=== PATIENT | female | born 1975 | race Caucasian/White ===

== ENCOUNTER 2017-11-04 11:27 | Emergency (ER) | payer OTHER ==
--- NOTE | 2017-11-04 12:27 | ER Document Report ---
ED Neck/Back Problem - General Chief Complaint: Neck Problem Stated Complaint: NECK AND SHOULDER PAIN Time Seen by Provider: 11/04/17 12:19 Mode of Arrival: Ambulatory Information source: Patient Notes: 42-year-old female presents to ED for complaint of pain to the left neck and shoulders for the last week. States she woke up in severe pain one day last week she states x-rays were done today. 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 She is also states she is also been lifting some at home. She is alert and oriented, respirations regular and unlabored, speaks with full sentences, walks with a even steady gait. - HPI Patient complains to provider of: Pain, Neck - And shoulders, Upper back Onset: Last week Onset: Cannot confirm Timing: Still present Quality of pain: Cramping, Sharp Severity: Severe Pain Level: 5 Context: Other - Unsure Recent injury: No Associated symptoms: Other - Neck upper back and shoulder pain Exacerbated by: Movement of neck - Related Data Allergies/Adverse Reactions: Sulfa (Sulfonamide Antibiotics) Allergy (Verified 11/04/17 11:30) Past Medical History - General Information source: Patient - Social History Smoking Status: Never Smoker Chew tobacco use (# tins/day): No Frequency of alcohol use: None Drug Abuse: None 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 Lives with: Family Family History: Reviewed & Not Pertinent Patient has suicidal ideation: No Patient has homicidal ideation: No - Past Medical History Cardiac Medical History: Reports: None Pulmonary Medical History: Reports: None EENT Medical History: Reports: None Neurological Medical History: Reports: None Endocrine Medical History: Reports: None Renal/ Medical History: Reports: Hx Kidney Stones Malignancy Medical History: Reports: None GI Medical History: Reports: None Musculoskeltal Medical History: Reports None Skin Medical History: Reports None Psychiatric Medical History: Reports: Hx Anxiety Traumatic Medical History: Reports: None Infectious Medical History: Reports: None Past Surgical History: Reports: Hx Section - x2, Hx Oral Surgery - Jaw surgery - Immunizations Immunizations up to date: Yes Review of Systems - Review of Systems Constitutional: No symptoms reported EENT: No symptoms reported Cardiovascular: No symptoms reported Respiratory: No symptoms reported Gastrointestinal: No symptoms reported Genitourinary: No symptoms reported Female Genitourinary: No symptoms reported Musculoskeletal: Muscle pain, Muscle stiffness, Neck pain - Spasms to the neck and left shoulder Skin: No symptoms reported Hematologic/Lymphatic: No symptoms reported Neurological/Psychological: No symptoms reported -: Yes All other systems reviewed and negative Physical Exam - Vital signs Vitals: Temp Pulse Resp BP Pulse Ox 98.8 F 102 H 20 165/98 H 96 11/04/17 11:41 11/04/17 11:41 11/04/17 11:41 11/04/17 11:41 11/04/17 11:41 Interpretation: Normal - General General appearance: Appears well, Alert - HEENT Head: Normocephalic, Atraumatic Eyes: Normal Pupils: PERRL - Respiratory Respiratory status: No respiratory distress Chest status: Nontender Breath sounds: Normal Chest palpation: Normal - Cardiovascular Rhythm: Regular Heart sounds: Normal auscultation Murmur: No - Abdominal Inspection: Normal Distension: No distension Bowel sounds: Normal Tenderness: Nontender Organomegaly: No organomegaly - Back Back: Normal, Tender - Tenderness and spasms to the left neck and shoulder increased pain when turning her head to the right - Extremities General upper extremity: Normal inspection, Normal color, Normal ROM, Normal temperature General lower extremity: Normal inspection, Nontender, Normal color, Normal ROM , Normal temperature, Normal weight bearing. No: Arslan's sign Shoulder: Tender, Limited ROM - Due to pain - Neurological Neuro grossly intact: Yes Cognition: Normal Orientation: AAOx4 [place] Coma Scale Eye Opening: Spontaneous [place] Coma Scale Verbal: Oriented Vik Coma Scale Motor: Obeys Commands [place] Coma Scale Total: 15 Speech: Normal Motor strength normal: LUE, RUE, LLE, RLE Sensory: Normal - Psychological Associated symptoms: Normal affect, Normal mood - Skin Skin Temperature: Warm Skin Moisture: Dry Skin Color: Normal Course - Re-evaluation Re-evalutation: 11/04/17 22:14 Patient was treated with nausea while in the emergency room. She was discharged home with muscle relaxers and encouraged to use ibuprofen warm packs and Aspercreme at home. Follow-up with orthopedics and her primary doctor. - Vital Signs Vital signs: Temp Pulse Resp BP Pulse Ox 98.5 F 102 H 19 139/85 H 99 11/04/17 12:30 11/04/17 12:30 11/04/17 12:30 11/04/17 12:30 11/04/17 12:30 Discharge - Discharge Clinical Impression: Torticollis, acute Condition: Stable Disposition: HOME, SELF-CARE Instructions: Use of Aead-Obk-Actzvus Ibuprofen ([facility]) Additional Instructions: Torticollis You have torticollis, often called "wry neck." This is due to spasm of neck muscles -- locking the neck into a crooked position. Many different problems can lead to torticollis, such as a minor injury, sleeping with tension on the neck, or inflammation in the glands of the neck. Torticollis is usually treated with heat to relax the neck muscles, but the physician may recommend cold packs if a minor injury is suspected as the cause. Muscle relaxing and antiinflammatory medicine are often prescribed. You may need a neck collar to support your head. Improvement is usually rapid. Usually, the neck can be moved fully within two days, although some pain may persist for a few weeks. Call the doctor at once if you worsen, or if you develop high fever, severe headache, numbness or weakness, or other alarming symptoms. ORAL NARCOTIC MEDICATION: You have been given a prescription for pain control. This medication is a narcotic. It's best taken with food, as nausea can result if taken on an empty stomach. Don't operate machinery or drive within six hours of taking this medication. Do not combine this medicine with alcohol, or with any medication which can cause sedation (such as cold tablets or sleeping pills) unless you get permission from the physician. Narcotics tend to cause constipation. If possible, drink plenty of fluids and eat a diet high in fiber and fruits. Please be aware that prescription narcotics also have the potential for abuse. People become addicted to these medications because of the general sense of wellbeing that they induce. This feeling along with a significant reduction in tension, anxiety, and aggression provides a stimulating seductive quality to these drugs. Once your pain is under control, we encourage you to discard your unused narcotics. MUSCLE RELAXERS: Muscle relaxing medications are usually prescribed for acute muscle spasm or injury to the neck and back. They are often combined with antiinflammatory pain medication for increased relief. You may stop the muscle relaxer when the pain and stiffness have improved. Start the medication again if spasms recur. Muscle relaxers may cause drowsiness, especially with the first dose. Do not operate machinery or drive while under the effects of the medication. Most muscle relaxers last up to 24 hours. Do not combine the medication with alcohol. ICE PACKS: Apply ice packs frequently against the painful area. Many different schedules are recommended, such as "20 minutes on, 20 minutes off" or "one hour ice, two hours rest." If you need to work, you may need to go longer between ice treatments. You should plan to have the area ice packed AT LEAST one fourth of the time. The ice should be applied over the wrap, tape, or splint, or over a layer of cloth -- not directly against the skin. Some ice bags have a built-in cloth and can be put directly on the skin. WARM PACKS: After approximately two days, apply gentle heat (such as a heating pad or hot water bottle) for about 20 to 30 minutes about every two hours -- at least four times daily. Warmth and elevation will help you make a more rapid recovery , and will ease the pain considerably. Do not use HOT heat, and never apply heat for longer than 30 minutes. The continuous heat can invisibly damage skin and muscles -- even when no burn is seen on the surface. Damaged muscles can make you MORE sore. FOLLOW-UP CARE: If you have been referred to a physician for follow-up care, call the physician s office for an appointment as you were instructed or within the next two days. If you experience worsening or a significant change in your symptoms, notify the physician immediately or return to the Emergency Department at any time for re-evaluation. Prescriptions: Oxycodone HCl/Acetaminophen [Percocet 5-325 mg Tablet] 1 tab PO Q6HP PRN #2 tab PRN Reason: Methocarbamol [Robaxin 500 mg Tablet] 500 mg PO BIDP PRN #14 tablet PRN Reason: Forms: Elevated Blood Pressure Referrals: LOCAL,NO [NO LOCAL MD] - Follow up as needed DEBRA HERRERA MD [ACTIVE STAFF] - Follow up in 3-5 days PARKER LEON MD [Primary Care Provider] - Follow up in 3-5 days
[2017-11-04 12:31] VITALS: BP 139/85
[2017-11-04] MEDS ORDERED: ONDANSETRON 4 MG TAB.RAPDIS PO ONE (12:36)
== END 2017-11-04 12:40 | disposition home or self-care (01) ==
LOC: ER 11:27
DX: M43.6 Torticollis (principal); M54.2 Cervicalgia; M25.511 Pain in right shoulder; M25.512 Pain in left shoulder; X50.9XXA Other and unspecified overexertion or strenuous movements or postures, initial encounter
CPT/HCPCS: 99283; S0119

== ENCOUNTER 2018-03-12 10:22 | Emergency (ER) | payer OTHER ==
--- NOTE | 2018-03-12 10:45 | ER Document Report ---
ED Medical Screen (RME) - General Chief Complaint: Abdominal Pain Stated Complaint: UPPER ABDOMINAL PAIN Time Seen by Provider: 03/12/18 10:35 Notes: 42-year-old female patient reports there has been a stomach virus going around her house since Wednesday. She was seen by her doctor on and received prescriptions for Tylenol 3, Toradol, and Zofran. She reports she had fever and chills through the night with 3 episodes of diarrhea. She reports she woke up at 530 this morning with right upper quadrant abdominal pain similar to gallbladder problems she had 10 years ago during . She states the pain is worse with food. The patient is seen at [facility] by JOSE Gallegos. I have greeted and performed a rapid initial assessment of this patient. A comprehensive ED assessment and evaluation of the patient, analysis of test results and completion of the medical decision making process will be conducted by additional ED providers. TRAVEL OUTSIDE OF THE [place] IN LAST 30 DAYS: No - Related Data Allergies/Adverse Reactions: Sulfa (Sulfonamide Antibiotics) Allergy (Verified 03/12/18 10:23) Past Medical History Renal/ Medical History: Reports: Hx Kidney Stones. Denies: Hx Peritoneal Dialysis Psychiatric Medical History: Reports: Hx Anxiety Past Surgical History: Reports: Hx Section - x2, Hx Oral Surgery - Jaw surgery - Immunizations Immunizations up to date: Yes Physical Exam - Vital signs Vitals: Temp Pulse Resp BP Pulse Ox 98.6 F 114 H 18 129/92 H 99 03/12/18 10:26 03/12/18 10:26 03/12/18 10:26 03/12/18 10:26 03/12/18 10:26 Course - Vital Signs Vital signs: Temp Pulse Resp BP Pulse Ox 98.6 F 114 H 18 129/92 H 99 03/12/18 10:26 03/12/18 10:26 03/12/18 10:26 03/12/18 10:26 03/12/18 10:26 Doctor's Discharge - Discharge Referrals: PARKER LEON MD [Primary Care Provider] - Follow up as needed
[2018-03-12] MEDS ORDERED: NORMAL SALINE 1000 ML 1,000 ML IV ONE (10:56)
--- NOTE | 2018-03-12 11:29 | RADIOLOGY REPORT (SQ) ---
EXAM DESCRIPTION: U/S ABDOMEN LIMITED W/O DOP COMPLETED DATE/TIME: 03/12/2018 11:06 am REASON FOR STUDY: RUQ abd pain COMPARISON: None. TECHNIQUE: Dynamic and static grayscale images acquired of the abdomen and recorded on PACS. Additio nal selected color Doppler and spectral images recorded. LIMITATIONS: None. FINDINGS: PANCREAS: No masses. Visualized pancreatic duct normal caliber. LIVER: No gross mass. Normal size. Echogenic parenchyma suggests steatosis. LIVER VASCULATURE: Normal directional flow of the main portal vein and hepatic veins. GALLBLADDER: No well-defined stones. Probable sludge within. ULTRASOUND-DETECTED GREER'S SIGN: Negative. INTRAHEPATIC DUCTS AND COMMON DUCT: CBD and intrahepatic ducts normal caliber. No filling defects. INFERIOR VENA CAVA: Normal flow. AORTA: No aneurysm. RIGHT KIDNEY: Normal size. Normal echogenicity. No solid or suspicious masses. No hydronephrosis. No calcifications. PERITONEAL AND RIGHT PLEURAL SPACE: No ascites or effusions. OTHER: No other significant findings. IMPRESSION: 1. No acute gallbladder disease. 2. Fatty liver. TECHNICAL DOCUMENTATION: JOB ID: [id number]- All Rights Reserved Reading location - IP/workstation name: [email or web address]
[2018-03-12] MEDS ORDERED: ONDANSETRON HCL INJ/PF 4 MG/2 ML SDV IV ONE (11:39)
[2018-03-12] MEDS ORDERED: MORPHINE SULFATE 10 MG/ML INJ IV ONE (11:39)
[2018-03-12 11:41] LABS: ABSOLUTE EOSINOPHILS # (AUTO) 0.5 10^3/uL (0.0-0.6); ABSOLUTE LYMPHOCYTES (AUTO) 2.6 10^3/uL (0.5-4.7); ABSOLUTE MONOCYTES (AUTO) 0.7 10^3/uL (0.1-1.4); ABSOLUTE NEUT (AUTO) 4.6 10^3/uL (1.7-8.2); BASOPHILS % (AUTO) 0.3 % (0-2); EOSINOPHILS % (AUTO) 6.1 % (0-6); HEMATOCRIT 35.9 % (36.0-47.0); HEMOGLOBIN 11.9 g/dL (12.0-15.5); LYMPHOCYTES % (AUTO) 30.4 % (13-45); MEAN CORPUSCULAR HEMOGLOBIN 26.7 pg (27.0-33.4); MEAN CORPUSCULAR HGB CONC 33.2 g/dL (32.0-36.0); MEAN CORPUSCULAR VOLUME 81 fl (80-97); MONOCYTES % (AUTO) 8.2 % (3-13); PLATELET COUNT 420 10^3/uL (150-450); RED BLOOD COUNT 4.46 10^6/uL (3.72-5.28); RED CELL DISTRIBUTION WIDTH 14.6 % (11.5-14.0); TOTAL CELLS COUNTED % (AUTO) 100 %; WHITE BLOOD COUNT 8.4 10^3/uL (4.0-10.5)
--- NOTE | 2018-03-12 11:42 | ER Document Report ---
ED General - General Chief Complaint: Abdominal Pain Stated Complaint: UPPER ABDOMINAL PAIN Time Seen by Provider: 03/12/18 10:35 TRAVEL OUTSIDE OF THE [place] IN LAST 30 DAYS: No - HPI Notes: Patient is a 42-year-old female that presents to the emergency department for chief complaint of abdominal pain. Patient states that 5 AM this morning she had acute onset of epigastric and right upper quadrant abdominal pain. The pain is sharp and nonradiating. She states it is worse about 15-30 minutes after eating any food or drinking any water. She denies any vomiting but does feel nauseated. The pain waxes and wanes but never completely resolves. She denies any relieving factors. She denies any constipation, diarrhea, fevers, shortness of breath, chest pain, numbness and weakness. She has had similar symptoms in the past during a but states it went away after fasting for 24 hours. Past Medical History: Negative Past Surgical History: Social History: Denies drugs alcohol and tobacco Family History: Reviewed and noncontributory for presenting illness Allergies: Reviewed, see documented allergy list. REVIEW OF SYSTEMS: CONSTITUTIONAL : No fever No chills No diaphoresis No recent illness EENT: No vision changes No congestion No sore throat CARDIOVASCULAR: No chest pain No palpitations RESPIRATORY: No shortness of breath No cough No difficulty breathing GASTROINTESTINAL: abdominal pain nausea No vomiting No diarrhea GENITOURINARY: No dysuria No hematuria No difficulty urinating MUSCULOSKELETAL: No back pain No leg pain No arm pain SKIN: No rashes No lesions LYMPHATIC: No swollen, enlarged glands. NEUROLOGICAL: No lightheadedness No headache No weakness No paresthesias PSYCHIATRIC: No anxiety No depression PHYSICAL EXAMINATION: Vital signs reviewed, nursing noted reviewed. GENERAL: Well-appearing, well-nourished and in no acute distress. HEAD: Atraumatic, normocephalic. EYES: Eyes appear normal, extraocular movements intact, sclera anicteric, conjunctiva are normal. ENT: nares patent, oropharynx clear without exudates. Moist mucous membranes. NECK: Normal range of motion, supple without lymphadenopathy LUNGS: Breath sounds clear to auscultation bilaterally and equal. No wheezes rales or rhonchi. HEART: Regular rate and rhythm without murmurs ABDOMEN: Soft, epigastric and right upper quadrant tenderness, negative Cool sign, normoactive bowel sounds. No rebound, guarding, or rigidity. No masses appreciated. EXTREMITIES: Nontender, good range of motion, no pitting or edema. NEUROLOGICAL: No focal neurological deficits. Moves all extremities spontaneously Motor and sensory grossly intact on exam. PSYCH: Normal mood, normal affect. SKIN: Warm, Dry, normal turgor, no rashes or lesions noted on exposed skin - Related Data Allergies/Adverse Reactions: Sulfa (Sulfonamide Antibiotics) Allergy (Verified 03/12/18 10:23) Past Medical History - Social History Smoking Status: Unknown if Ever Smoked Family History: Reviewed & Not Pertinent Patient has suicidal ideation: No Patient has homicidal ideation: No Renal/ Medical History: Reports: Hx Kidney Stones. Denies: Hx Peritoneal Dialysis Psychiatric Medical History: Reports: Hx Anxiety Past Surgical History: Reports: Hx Section - x2, Hx Oral Surgery - Jaw surgery - Immunizations Immunizations up to date: Yes Review of Systems - Review of Systems Notes: Dictated Physical Exam - Vital signs Vitals: Temp Pulse Resp BP Pulse Ox 98.6 F 114 H 18 129/92 H 99 03/12/18 10:26 03/12/18 10:26 03/12/18 10:26 03/12/18 10:26 03/12/18 10:26 - Notes Notes: Dictated Course - Re-evaluation Re-evalutation: 03/12/18 11:41 Vitals reviewed. Nursing notes reviewed. Patient given IV hydration, morphine and Zofran for symptomatic management. Ultrasound of her right upper quadrant is normal and there is no acute cholecystitis. 03/12/18 12:42 Laboratory 03/12/18 03/12/18 03/12/18 10:45 11:10 11:10 WBC 8.4 RBC 4.46 Hgb 11.9 L Hct 35.9 L MCV 81 MCH 26.7 L MCHC 33.2 RDW 14.6 H Plt Count 420 Seg Neutrophils % 55.0 Lymphocytes % 30.4 Monocytes % 8.2 Eosinophils % 6.1 H Basophils % 0.3 Absolute Neutrophils 4.6 Absolute Lymphocytes 2.6 Absolute Monocytes 0.7 Absolute Eosinophils 0.5 Absolute Basophils 0.0 Sodium 143.2 Potassium 4.9 Chloride 107 Carbon Dioxide 25 Anion Gap 11 BUN 19 Creatinine 0.72 Est GFR ( Amer) > 60 Est GFR (Non-Af Amer) > 60 Glucose 90 Calcium 9.6 Total Bilirubin 0.2 Direct Bilirubin 0.2 Neonat Total Bilirubin Not Reportable Neonat Direct Bilirubin Not Reportable Neonat Indirect Bili Not Reportable AST 44 H ALT 83 H Alkaline Phosphatase 77 Total Protein 6.6 Albumin 3.9 Lipase 86.9 Serum HCG, Qual Urine Color YELLOW Urine Appearance CLEAR Urine pH 5.0 Ur Specific [place] 1.024 Urine Protein NEGATIVE Urine Glucose (UA) NEGATIVE Urine Ketones NEGATIVE Urine Blood NEGATIVE Urine Nitrite NEGATIVE Urine Bilirubin NEGATIVE Urine Urobilinogen NEGATIVE Ur Leukocyte Esterase NEGATIVE Urine WBC (Auto) 0 Urine RBC (Auto) 0 Squamous Epi Cells Auto <1 Urine Mucus (Auto) FEW Urine Ascorbic Acid NEGATIVE 03/12/18 11:10 WBC RBC Hgb Hct MCV MCH MCHC RDW Plt Count Seg Neutrophils % Lymphocytes % Monocytes % Eosinophils % Basophils % Absolute Neutrophils Absolute Lymphocytes Absolute Monocytes Absolute Eosinophils Absolute Basophils Sodium Potassium Chloride Carbon Dioxide Anion Gap BUN Creatinine Est GFR ( Amer) Est GFR (Non-Af Amer) Glucose Calcium Total Bilirubin Direct Bilirubin Neonat Total Bilirubin Neonat Direct Bilirubin Neonat Indirect Bili AST ALT Alkaline Phosphatase Total Protein Albumin Lipase Serum HCG, Qual NEGATIVE Urine Color Urine Appearance Urine pH Ur Specific [place] Urine Protein Urine Glucose (UA) Urine Ketones Urine Blood Urine Nitrite Urine Bilirubin Urine Urobilinogen Ur Leukocyte Esterase Urine WBC (Auto) Urine RBC (Auto) Squamous Epi Cells Auto Urine Mucus (Auto) Urine Ascorbic Acid Abdomen Ultrasound 03/12/18 10:42 IMPRESSION: 1. No acute gallbladder disease. 2. Fatty liver. Patient's lab work is unremarkable. She did have some symptomatic relief after medication. She has remained hemodynamically stable. Patient will be started on omeprazole for possible gastritis. She was counseled on dietary changes. She will follow with her PCP for reevaluation in the next few days. She will return for new or worsening symptoms. - Vital Signs Vital signs: Temp Pulse Resp BP Pulse Ox 98.6 F 114 H 18 129/92 H 99 03/12/18 10:26 03/12/18 10:26 03/12/18 10:26 03/12/18 10:26 03/12/18 10:26 - Laboratory Result Diagrams: 03/12/18 11:10 03/12/18 11:10 Laboratory results interpreted by me: 03/12/18 03/12/18 11:10 11:10 Hgb 11.9 L Hct 35.9 L MCH 26.7 L RDW 14.6 H Eosinophils % 6.1 H AST 44 H ALT 83 H Discharge - Discharge Clinical Impression: Abdominal pain Qualifiers: Abdominal location: upper abdomen, unspecified Qualified Code(s): R10.10 - Upper abdominal pain, unspecified Condition: Stable Disposition: HOME, SELF-CARE Instructions: Abdominal Pain ([facility]) Additional Instructions: Please return to the emergency department if you have any worsening, or concern of your symptoms. Please return to the emergency department if you develop chest pain, difficulty breathing, severe abdominal pain, or ongoing vomiting. Please follow-up with your primary care physician in 2-3 days and any other recommended physicians. If prescribed, take all medications as directed. If you have any questions or concerns do not hesitate to return the emergency department for evaluation. [] Prescriptions: Omeprazole 40 mg PO DAILY #30 capsule.dr Referrals: PARKER LEON MD [ACTIVE STAFF] - Follow up in 3-5 days
[2018-03-12 11:54] LABS: ALANINE AMINOTRANSFERASE 83 U/L (9-52); ALBUMIN 3.9 g/dL (3.5-5.0); ALKALINE PHOSPHATASE 77 U/L (38-126); ANION GAP 11 (5-19); ASPARTATE AMINO TRANSFERASE 44 U/L (14-36); BILIRUBIN,DIRECT 0.2 mg/dL (0.0-0.4); BILIRUBIN,TOTAL 0.2 mg/dL (0.2-1.3); BLOOD UREA NITROGEN 19 mg/dL (7-20); CALCIUM 9.6 mg/dL (8.4-10.2); CARBON DIOXIDE 25 mmol/L (22-30); CHLORIDE 107 mmol/L (98-107); GLUCOSE 90 mg/dL (75-110); LIPASE 86.9 U/L (23-300); POTASSIUM 4.9 mmol/L (3.6-5.0); SODIUM 143.2 mmol/L (137-145); TOTAL PROTEIN 6.6 g/dL (6.3-8.2)
[2018-03-12 12:20] LABS: APPEARANCE,URINE CLEAR; BILIRUBIN,URINE NEGATIVE (NEGATIVE); COLOR,URINE YELLOW; GLUCOSE, URINE NEGATIVE (NEGATIVE); KETONES,URINE NEGATIVE (NEGATIVE); LEUKOCYTE ESTERASE,URINE NEGATIVE (NEGATIVE); NITRITE,URINE NEGATIVE (NEGATIVE); PROTEIN,URINE NEGATIVE (NEGATIVE); URINE SPECIFIC GRAVITY 1.024; UROBILINOGEN,URINE NEGATIVE mg/dL (<2.0)
[2018-03-12 12:57] VITALS: BP 131/87
== END 2018-03-12 12:56 | disposition home or self-care (01) ==
LOC: ER 10:22
DX: R10.13 Epigastric pain (principal); R10.11 Right upper quadrant pain; Z87.442 Personal history of urinary calculi; Z88.2 Allergy status to sulfonamides
CPT/HCPCS: 99284; 96361; 96374; 96375; 36415; 83690; 84703; 85025; 80053; 81001; 76705; J2270; J2405; J7030

== ENCOUNTER 2019-07-03 04:36 | Emergency (ER) | payer BC, OTHER ==
[2019-07-03] MEDS ORDERED: TAMSULOSIN HCL 0.4 MG CAP.SR.24H PO ONE (05:06)
[2019-07-03] MEDS ORDERED: KETOROLAC TROMETHAMINE INJ/PF 30 MG/1 ML SDV IV ONE (05:06)
[2019-07-03] MEDS ORDERED: NORMAL SALINE 1000 ML 1,000 ML IV ONE (05:06)
--- NOTE | 2019-07-03 05:13 | ER Document Report ---
ED General - General Chief Complaint: Possible Kidney Stone Stated Complaint: FLANK PAIN Time Seen by Provider: 07/03/19 04:54 Primary Care Provider: FRAN CRAIG PA-C [Primary Care Provider] - Follow up as needed Mode of Arrival: Ambulatory Information source: Patient Notes: 44-year-old female presents emergency department with complaints of left-sided flank pain. Reports she has a history of kidney stones. She reports this pain woke her up tonight. She reports she has noted hematuria. She reports last couple days she has had urinary frequency with decreased output. Denies fever vomiting diarrhea. Reports she did feel nauseated so she took some Zofran on the way here. Patient reports she had a kidney stone back in January and was supposed to follow-up for lithotripsy but never did. TRAVEL OUTSIDE OF THE [place] IN LAST 30 DAYS: No - HPI Onset: Just prior to arrival Onset/Duration: Sudden Quality of pain: Achy Associated symptoms: Nausea Exacerbated by: Denies Relieved by: Denies Similar symptoms previously: Yes Recently seen / treated by doctor: No - Related Data Allergies/Adverse Reactions: Sulfa (Sulfonamide Antibiotics) Allergy (Verified 03/12/18 10:23) Home Medications: flomax, aleve,zofran Past Medical History - General Information source: Patient Last Menstrual Period: June 15, 2019 - Social History Smoking Status: Never Smoker Cigarette use (# per day): No Frequency of alcohol use: None Drug Abuse: None Occupation: [employer] Lives with: Family Family History: Reviewed & Not Pertinent Patient has suicidal ideation: No Patient has homicidal ideation: No Renal/ Medical History: Reports: Hx Kidney Stones. Denies: Hx Peritoneal Dialysis Psychiatric Medical History: Reports: Hx Anxiety Traumatic Medical History: Reports: Hx Fractures Past Surgical History: Reports: Hx Section - x2, Hx Oral Surgery - Jaw surgery, Hx Orthopedic Surgery - Immunizations Immunizations up to date: Yes Review of Systems - Review of Systems Notes: Review HPI for review of systems., All other systems negative Physical Exam - Vital signs Vitals: Temp Pulse Resp BP Pulse Ox 98.2 F 117 H 18 139/90 H 99 07/03/19 04:42 07/03/19 04:42 07/03/19 04:42 07/03/19 04:42 07/03/19 04:42 - General General appearance: Alert, Anxious In distress: None - HEENT Head: Normocephalic, Atraumatic Eyes: Normal Conjunctiva: Normal Extraocular movements intact: Yes Ears: Normal External canal: Normal Tympanic membrane: Normal Nasal: Normal Mucous membranes: Moist Teeth diagram: 1 - Widespread dental decay Pharynx: Normal Neck: Normal, Supple. No: Lymphadenopathy - Respiratory Respiratory status: No respiratory distress Chest status: Nontender Breath sounds: Normal Chest palpation: Normal - Cardiovascular Rhythm: Regular Heart sounds: Normal auscultation Murmur: No - Abdominal Inspection: Normal Distension: No distension Bowel sounds: Normal Tenderness: Nontender Organomegaly: No organomegaly - Back Back: Normal, CVA tenderness - Flank pain Course - Re-evaluation Re-evalutation: 07/03/19 06:59 44-year-old female presents emergency department with complaints of left-sided flank pain with history of kidney stones. Reports the pain woke her up. Patient has been treated with IV fluids, fentanyl for pain and Reglan for her nausea. Labs are unremarkable. 07/03/19 07:22 Laboratory 07/03/19 07/03/19 07/03/19 05:40 05:51 05:51 WBC 9.6 RBC 4.09 Hgb 11.2 L Hct 33.7 L MCV 83 MCH 27.5 MCHC 33.4 RDW 14.3 H Plt Count 329 Lymph % (Auto) 21.3 Jerome % (Auto) 7.4 Eos % (Auto) 3.5 Baso % (Auto) 0.3 Absolute Neuts (auto) 6.5 Absolute Lymphs (auto) 2.0 Absolute Monos (auto) 0.7 Absolute Eos (auto) 0.3 Absolute Basos (auto) 0.0 Seg Neutrophils % 67.5 Sodium 141.0 Potassium 4.3 Chloride 107 Carbon Dioxide 25 Anion Gap 9 BUN 18 Creatinine 1.14 Est GFR ( Amer) > 60 Est GFR (MDRD) Non-Af 52 L Glucose 109 Calcium 9.1 Total Bilirubin 0.3 Direct Bilirubin 0.3 Neonat Total Bilirubin Not Reportable Neonat Direct Bilirubin Not Reportable Neonat Indirect Bili Not Reportable AST 24 ALT 14 Alkaline Phosphatase 79 Total Protein 6.6 Albumin 3.7 Urine Color YELLOW Urine Appearance CLEAR Urine pH 5.0 Ur Specific [place] 1.028 Urine Protein 30 H Urine Glucose (UA) NEGATIVE Urine Ketones NEGATIVE Urine Blood NEGATIVE Urine Nitrite NEGATIVE Urine Bilirubin NEGATIVE Urine Urobilinogen NEGATIVE Ur Leukocyte Esterase NEGATIVE Urine WBC (Auto) 2 Urine RBC (Auto) 35 Squamous Epi Cells Auto <1 Urine Mucus (Auto) FEW Urine Ascorbic Acid 40 H Urine HCG, Qual NEGATIVE Abdomen/Pelvis CT 07/03/19 06:04 IMPRESSION: 5 mm stone within the distal left ureter causing moderate hydroureter and hydronephrosis. Edematous left kidney. Pyelonephritis may be present. Nonobstructing right-sided nephrolithiasis. Porcelain gallbladder. Right ovarian cyst. Recommend follow-up ultrasound in 6-12 weeks. TECHNICAL DOCUMENTATION: Quality ID # 436: Final reports with documentation of one or more dose reduction techniques (e.g., Automated exposure control, adjustment of the mA and/or kV according to patient size, use of iterative reconstruction technique) copyright 2011 [employer]- All Rights Reserved - Vital Signs Vital signs: Temp Pulse Resp BP Pulse Ox 97.8 F 102 H 18 123/74 98 07/03/19 07:05 07/03/19 07:05 07/03/19 07:05 07/03/19 07:05 07/03/19 07:05 - Laboratory Result Diagrams: 07/03/19 05:51 07/03/19 05:51 Laboratory results interpreted by me: 07/03/19 07/03/19 07/03/19 05:40 05:51 05:51 Hgb 11.2 L Hct 33.7 L RDW 14.3 H Est GFR (MDRD) Non-Af 52 L Urine Protein 30 H Urine Ascorbic Acid 40 H - Diagnostic Test Radiology reviewed: Reports reviewed Discharge - Discharge Clinical Impression: Flank pain, Kidney stone, Porcelain gallbladder Ovarian cyst Qualifiers: Laterality: right Qualified Code(s): N83.201 - Unspecified ovarian cyst, right side Condition: Stable Disposition: HOME, SELF-CARE Instructions: Oral Narcotic Medication ([facility]), Toradol Injection ([facility]), Pain Medication Injection ([facility]), Kidney Stone ([facility]), Rocephin ([facility]), Intravenous (IV) Fluids ([facility]), Nitrofurantoin ([facility]) Additional Instructions: *You have been evaluated for flank pain, kidney stone, porcelain gallbladder , ovarian cyst *Take medication as prescribed *Follow up with Fran Craig, your primary care provider, this week for recheck and referral to a surgeon for evaluation of the porcelain gallbladder *Contact your urologist, Dr. 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
[2019-07-03 05:58] LABS: APPEARANCE,URINE CLEAR; BILIRUBIN,URINE NEGATIVE (NEGATIVE); COLOR,URINE YELLOW; GLUCOSE, URINE NEGATIVE (NEGATIVE); KETONES,URINE NEGATIVE (NEGATIVE); LEUKOCYTE ESTERASE,URINE NEGATIVE (NEGATIVE); NITRITE,URINE NEGATIVE (NEGATIVE); PROTEIN,URINE 30 mg/dL (NEGATIVE); URINE SPECIFIC GRAVITY 1.028; UROBILINOGEN,URINE NEGATIVE mg/dL (<2.0)
[2019-07-03 06:04] LABS: ABSOLUTE EOSINOPHILS # (AUTO) 0.3 10^3/uL (0.0-0.6); ABSOLUTE MONOCYTES (AUTO) 0.7 10^3/uL (0.1-1.4); ABSOLUTE NEUT (AUTO) 6.5 10^3/uL (1.7-8.2); BASOPHILS % (AUTO) 0.3 % (0-2); EOSINOPHILS % (AUTO) 3.5 % (0-6); HEMATOCRIT 33.7 % (36.0-47.0); HEMOGLOBIN 11.2 g/dL (12.0-15.5); LYMPHOCYTES % (AUTO) 21.3 % (13-45); MEAN CORPUSCULAR HEMOGLOBIN 27.5 pg (27.0-33.4); MEAN CORPUSCULAR HGB CONC 33.4 g/dL (32.0-36.0); MEAN CORPUSCULAR VOLUME 83 fl (80-97); MONOCYTES % (AUTO) 7.4 % (3-13); PLATELET COUNT 329 10^3/uL (150-450); RED BLOOD COUNT 4.09 10^6/uL (3.72-5.28); RED CELL DISTRIBUTION WIDTH 14.3 % (11.5-14.0); SEGMENTED NEUTROPHILS % (AUTO) 67.5 % (42-78); TOTAL CELLS COUNTED % (AUTO) 100 %; WHITE BLOOD COUNT 9.6 10^3/uL (4.0-10.5)
[2019-07-03] MEDS ORDERED: FENTANYL CITRATE INJ/PF 100 MCG/2 ML AMPUL IV ONE ×3 (06:04→08:30)
[2019-07-03] MEDS ORDERED: METOCLOPRAMIDE HCL INJ/PF 10 MG/2 ML SDV IV ONE (06:04)
[2019-07-03 06:21] LABS: ALBUMIN 3.7 g/dL (3.5-5.0); ALKALINE PHOSPHATASE 79 U/L (38-126); ANION GAP 9 (5-19); ASPARTATE AMINO TRANSFERASE 24 U/L (14-36); BILIRUBIN,DIRECT 0.3 mg/dL (0.0-0.4); BILIRUBIN,TOTAL 0.3 mg/dL (0.2-1.3); BLOOD UREA NITROGEN 18 mg/dL (7-20); CALCIUM 9.1 mg/dL (8.4-10.2); CARBON DIOXIDE 25 mmol/L (22-30); CHLORIDE 107 mmol/L (98-107); GLUCOSE 109 mg/dL (75-110); POTASSIUM 4.3 mmol/L (3.6-5.0); TOTAL PROTEIN 6.6 g/dL (6.3-8.2)
--- NOTE | 2019-07-03 07:02 | RADIOLOGY REPORT (SQ) ---
EXAM DESCRIPTION: CT ABDOMEN PELVIS WITHOUT IV CONTRAST COMPLETED DATE/TME: 07/03/2019 06:04 CLINICAL HISTORY: 44 years, Female, flank pain hx kidney stones COMPARISON: None. TECHNIQUE: Axial CT images of the abdomen and pelvis were obtained without contrast. Sagittal and coronal reformats were performed. Sagittal and coronal reformats were performed. DLP 492 Images stored on PACS. All CT scanners at this facility use dose modulation, iterative reconstruction, and/or weight based dosing when appropriate to reduce radiation dose to as low as reasonably achievable (ALARA). [facility]: Dose Right [facility]: CareDose [facility]: Dose Right [facility]: Teradose 4D [facility]: [employer] LIMITATIONS: None. FINDINGS: The lung bases are clear. The liver appears unremarkable. There are calcifications along the gallbladder wall. No calcified stone or pericholecystic fluid is identified. The pancreas, spleen, and adrenal glands are unremarkable. There are two nonobstructing stones within the right kidney with the largest stone along the lower pole measuring 7 mm. There is a 5 mm stone within the distal left ureter causing moderate hydroureter and hydronephrosis. The left kidney is edematous with perinephric stranding. There is an additional punctate stone along the upper pole the left kidney. There is no intraperitoneal free air or fluid. The abdominal aorta is normal in caliber. There is no lymphadenopathy. The stomach and small bowel are unremarkable. The appendix is not uniquely identified, however there are no pericecal inflammatory changes. The colon contains a moderate amount of stool. The uterus and urinary bladder are unremarkable. There is a 4.4 x 4.4 cm right ovarian cyst. The bones are unremarkable. IMPRESSION: 5 mm stone within the distal left ureter causing moderate hydroureter and hydronephrosis. Edematous left kidney. Pyelonephritis may be present. Nonobstructing right-sided nephrolithiasis. Porcelain gallbladder. Right ovarian cyst. Recommend follow-up ultrasound in 6-12 weeks. TECHNICAL DOCUMENTATION: Quality ID # 436: Final reports with documentation of one or more dose reduction techniques (e.g., Automated exposure control, adjustment of the mA and/or kV according to patient size, use of iterative reconstruction technique) copyright 2011 [employer]- All Rights Reserved
[2019-07-03] MEDS ORDERED: CEFTRIAXONE 1 GM/D5W RTU 1 GM/50 ML RTUPB IV ONE (07:19)
[2019-07-03 08:38] VITALS: BP 115/68
== END 2019-07-03 08:38 | disposition home or self-care (01) ==
LOC: ER 04:36
DX: N83.201 Unspecified ovarian cyst, right side (principal); N20.0 Calculus of kidney; K82.8 Other specified diseases of gallbladder; R10.9 Unspecified abdominal pain; R11.0 Nausea; Z88.2 Allergy status to sulfonamides; Z87.442 Personal history of urinary calculi
CPT/HCPCS: 96376; 99284; 96361; 96375; 96365; 36415; 87040; 87086; 85025; 81025; 80053; 81001; 74176; J3010; J1885; J2765; J7030; J0696

== ENCOUNTER 2020-04-19 05:57 | Emergency (ER) | payer BC ==
[2020-04-19 06:38] LABS: ABSOLUTE BASOPHILS # (AUTO) 0.1 10^3/uL (0.0-0.2); ABSOLUTE EOSINOPHILS # (AUTO) 0.6 10^3/uL (0.0-0.6); ABSOLUTE LYMPHOCYTES (AUTO) 3.3 10^3/uL (0.5-4.7); ABSOLUTE MONOCYTES (AUTO) 0.8 10^3/uL (0.1-1.4); BASOPHILS % (AUTO) 0.8 % (0-2); EOSINOPHILS % (AUTO) 5.5 % (0-6); HEMOGLOBIN 11.6 g/dL (12.0-15.5); LYMPHOCYTES % (AUTO) 30.7 % (13-45); MEAN CORPUSCULAR HEMOGLOBIN 26.6 pg (27.0-33.4); MEAN CORPUSCULAR HGB CONC 33.2 g/dL (32.0-36.0); MEAN CORPUSCULAR VOLUME 80 fl (80-97); MONOCYTES % (AUTO) 7.7 % (3-13); PLATELET COUNT 425 10^3/uL (150-450); RED BLOOD COUNT 4.35 10^6/uL (3.72-5.28); RED CELL DISTRIBUTION WIDTH 14.7 % (11.5-14.0); SEGMENTED NEUTROPHILS % (AUTO) 55.3 % (42-78); TOTAL CELLS COUNTED % (AUTO) 100 %; WHITE BLOOD COUNT 10.9 10^3/uL (4.0-10.5)
[2020-04-19 06:46] LABS: APPEARANCE,URINE SLIGHTLY-CLOUDY; BILIRUBIN,URINE NEGATIVE (NEGATIVE); COLOR,URINE YELLOW; GLUCOSE, URINE NEGATIVE (NEGATIVE); KETONES,URINE NEGATIVE (NEGATIVE); LEUKOCYTE ESTERASE,URINE TRACE (NEGATIVE); NITRITE,URINE NEGATIVE (NEGATIVE); PROTEIN,URINE 30 mg/dL (NEGATIVE); URINE SPECIFIC GRAVITY 1.023; UROBILINOGEN,URINE NEGATIVE mg/dL (<2.0)
[2020-04-19 06:53] LABS: ALBUMIN 3.6 g/dL (3.5-5.0); ALKALINE PHOSPHATASE 59 U/L (38-126); ASPARTATE AMINO TRANSFERASE 25 U/L (14-36); BILIRUBIN,DIRECT 0.2 mg/dL (0.0-0.4); BILIRUBIN,TOTAL 0.3 mg/dL (0.2-1.3); BLOOD UREA NITROGEN 17 mg/dL (7-20); CALCIUM 9.2 mg/dL (8.4-10.2); GLUCOSE 111 mg/dL (75-110); POTASSIUM 4.8 mmol/L (3.6-5.0); TOTAL PROTEIN 6.5 g/dL (6.3-8.2)
[2020-04-19 06:58] LABS: ANION GAP 5 (5-19); CARBON DIOXIDE 24 mmol/L (22-30); CHLORIDE 108 mmol/L (98-107)
[2020-04-19] MEDS ORDERED: ONDANSETRON HCL INJ/PF 4 MG/2 ML SDV IV ONE (08:02)
[2020-04-19] MEDS ORDERED: HYDROMORPHONE HCL INJ/PF 2 MG/ML AMPULE IV ONE ×2 (08:02→09:07)
[2020-04-19] MEDS ORDERED: NORMAL SALINE 1000 ML 1,000 ML IV ONE ×2 (08:02→09:07)
--- NOTE | 2020-04-19 08:09 | ER Document Report ---
ED General - General Chief Complaint: Possible Kidney Stone Stated Complaint: RIGHT FLANK PAIN Time Seen by Provider: 04/19/20 07:42 Primary Care Provider: DEL GUARDADO PA-C [Primary Care Provider] - Follow up as needed TRAVEL OUTSIDE OF THE [place] IN LAST 30 DAYS: No - HPI Notes: Chief complaint: Right flank pain, nausea and vomiting History of present illness: 44-year-old female with history of recurrent episodes of ureterolithiasis awakened this morning with severe right-sided flank pain which she says is worse than her prior episodes. She describes her pain presently is 8/10 and intermittent. Associated nausea and vomiting. No fever chills. No gross hematuria. Mild urinary urgency. Patient has been followed by the [facility] urology [facility] and says that the last time she had a scan was about 2 years ago. She is always passed her stone spontaneously. She has a history of experiencing increased intracranial pressure when she has been given morphine. She states that she is tolerating Tylenol without any difficulty. She is presently on any prescription medications. She reports allergy to sulfa drugs. - Related Data Allergies/Adverse Reactions: morphine Allergy (Verified 04/19/20 06:10) Sulfa (Sulfonamide Antibiotics) Allergy (Verified 03/12/18 10:23) Past Medical History - General Information source: Patient, Relative Last Menstrual Period: 04/11/2020 - Social History Smoking Status: Never Smoker Frequency of alcohol use: None Drug Abuse: None Family History: Reviewed & Not Pertinent Patient has homicidal ideation: No Neurological Medical History: Reports: Other - History of ICP Endocrine Medical History: Denies: Hx Diabetes Mellitus Type 1, Hx Diabetes Mellitus Type 2 Renal/ Medical History: Reports: Hx Kidney Stones. Denies: Hx Peritoneal Dialysis Psychiatric Medical History: Reports: Hx Anxiety Traumatic Medical History: Reports: Hx Fractures Past Surgical History: Reports: Hx Section - x2, Hx Oral Surgery - Jaw surgery, Hx Orthopedic Surgery - right foot - Immunizations Immunizations up to date: Yes Review of Systems - Review of Systems Notes: Constitutional: Negative for fever. HENT: Negative for sore throat. Eyes: Negative for visual changes. Cardiovascular: Negative for chest pain. Respiratory: Negative for shortness of breath. Gastrointestinal: As per HPI. Genitourinary: As per HPI. Musculoskeletal: As per HPI. Skin: Negative for rash. Neurological: Negative for headaches, weakness or numbness. 10 point ROS negative except as marked above and in HPI. Physical Exam - Vital signs Vitals: Temp Pulse Resp BP Pulse Ox 98.1 F 109 H 18 149/88 H 100 04/19/20 06:02 04/19/20 06:02 04/19/20 06:02 04/19/20 06:02 04/19/20 06:02 - Notes Notes: GENERAL: Middle-aged female holding right flank area appearing extremely uncomfortable and tearful. SKIN: Good turgor no rashes. HEAD: Normocephalic atraumatic. EYES: PERRLA. EOMI. Conjunctivae and sclerae clear. EARS: CANALS AND TMS CLEAR. NOSE: CLEAR. MOUTH: Moist mucosa. Good dentition. No stridor or edema. No drooling. NECK: Supple. No masses or thyromegaly. No adenopathy. Carotids 2+ without bruits. No JVD. BACK: Symmetrical without tenderness. CHEST: Respirations unlabored. Breath sounds clear and symmetrical. HEART: Regular rhythm. No murmur gallop or rub. ABDOMEN: Soft nontender without masses, organomegaly or rebound. Bowel sounds normally active. No bruits. GENITALIA: Deferred. EXTREMITIES: No edema. No calf tenderness. Cap refill less than 1.5 seconds. Dorsalis pedis and posterior tibial pulses 3+ and symmetrical. NEUROLOGICAL: GCS 15. Alert and oriented x3. Normal gait. Fluent speech. Cranial nerves II through XII intact. Sensorimotor and cerebellar normal. Normal tone. PSYCHIATRIC: Anxious, tearful affect. Course - Re-evaluation Re-evalutation: 04/19/20 09:08 Clinically patient appears to have right-sided renal colic. She initially received IV normal saline and IV Zofran and Dilaudid. Subsequent noncontrast CT abdomen pelvis shows 7 mm calculus distal right ureter with hydronephrosis. Serum creatinine is normal. Urinalysis remarkable for microscopic hematuria. Patient still has 7/10 intensity pain. We will give her some IV Toradol and additional Dilaudid normal saline. We will reassess patient clinically within the next 1 hour. Pain can be adequately controlled she will go home on oral analgesics with outpatient urology follow-up. If pain cannot be controlled we will try to arrange transfer to another facility for stenting. Findings, clinical impression and plan of treatment have been discussed with patient/family. Understanding of current findings and recommendations has been acknowledged by them and there is agreement regarding disposition and follow-up. 04/19/20 10:29 Pain is now adequately controlled and patient is taking oral fluids without difficulty. We will coordinate outpatient neurology follow-up. - Vital Signs Vital signs: Temp Pulse Resp BP Pulse Ox 98.1 F 109 H 18 149/88 H 100 04/19/20 06:02 04/19/20 06:02 04/19/20 06:02 04/19/20 06:02 04/19/20 06:02 - Laboratory Results Result Diagrams: 04/19/20 06:23 04/19/20 06:23 Laboratory Results Interpreted: 04/19/20 04/19/20 04/19/20 06:23 06:23 06:23 WBC 10.9 H Hgb 11.6 L Hct 35.0 L MCH 26.6 L RDW 14.7 H Chloride 108 H Glucose 111 H Urine Protein 30 H Urine Blood MODERATE H Ur Leukocyte Esterase TRACE H Critical Laboratory Results Reviewed: No Critical Results - Radiology Results Radiology Results Interpreted: 04/19/20 09:08 Abdomen/Pelvis CT 04/19/20 08:03 IMPRESSION: 1. 7 mm obstructing stone at the right distal ureter with significant associated upstream hydronephrosis and edematous renal parenchyma. 2. Peripheral gallbladder wall calcifications, similar to prior. No other evidence of acute intra-abdominal/pelvic process. Critical Radiology Results Reviewed: Yes Attending or Supervising Physician who Reviewed Radiology: CAREY CASTREJON Discharge - Discharge Clinical Impression: Ureterolithiasis with renal colic right Condition: Stable Disposition: HOME, SELF-CARE Additional Instructions: Kidney Stone You are passing or have passed a kidney stone. These stones are usually due to increased calcium or uric acid concentrations in your urine. Stones within the kidney itself are not painful. The pain occurs as the stone leaves the kidney to pass down the long tube, called the ureter, leading to the b ladder. If the stone is small, it will usually pass by itself. Most patients can pass the stone at home. You will usually receive medications for pain, nausea or vomiting, and sometimes a medication to assist in passing the kidney stone. However, if the pain is very severe or if vomiting prevents you from taking oral pain medications, you may need to return for further treatment. Drink three or four quarts of fluids per day. You will be given pain medication (if needed) and urine strainers. Strain all your urine to see if the stone passes. If your doctor has asked you to bring the stone in for analysis, return with the stone once it has passed. Return if pain or vomiting become severe, if you develop a high fever, if you are unable to pass your urine, or if other unusual symptoms occur. Return here as needed for new or worsening symptoms: Pain that is worsening or unimproved Uncontrolled vomiting High fever or shaking chills Overall worsening You have been provided a work note for the next 3 days. Increase oral fluids. Take prescribed medications as directed. Follow-up with your urologist or referral urologist within the next 3 to 5 days. Prescriptions: Ketorolac Tromethamine [Toradol 10 mg Tablet] 10 mg PO Q6HP PRN 10 Days #20 tablet PRN Reason: Tamsulosin HCl [Flomax 0.4 mg Cap.sr] 0.4 mg PO DAILY 7 Days #14 cap.sr.24h Oxycodone HCl/Acetaminophen [Percocet 5-325 mg Tablet] 1 tab PO Q6H PRN 5 Days #20 tab PRN Reason: Ondansetron [Zofran Odt 4 mg Tablet] 1 - 2 tab PO Q4H PRN #15 tab.rapdis PRN Reason: For Nausea/Vomiting Forms: Return to Work Referrals: DEL GUARDADO PA-C [Primary Care Provider] - Follow up as needed ROLA BERNSTEIN MD [NO LOCAL MD] - Follow up as needed
--- NOTE | 2020-04-19 08:54 | RADIOLOGY REPORT (SQ) ---
EXAM DESCRIPTION: CT ABD/PELVIS NO ORAL OR IV IMAGES COMPLETED DATE/TIME: 04/19/2020 8:28 am REASON FOR STUDY: right flank pain COMPARISON: 07/03/2019 TECHNIQUE: CT scan of the abdomen and pelvis performed without intravenous or oral contrast. Images reviewed with lung, soft tissue, and bone windows. Reconstructed coronal and sagittal MPR images revi ewed. All images stored on PACS. All CT scanners at this facility use dose modulation, iterative reconstruction, and/or weight based d osing when appropriate to reduce radiation dose to as low as reasonably achievable (ALARA). [facility]: Dose Right [facility]: CareDose [facility]: Dose Right [facility]: Teradose 4D [facility]: [employer] RADIATION DOSE: CT Rad equipment meets quality standard of care and radiation dose reduction techniq ues were employed. CTDIvol: 10.4 mGy. DLP: 563 mGy-cm.mGy. LIMITATIONS: None. FINDINGS: LOWER CHEST: No significant findings. No nodules or infiltrates. NON-CONTRASTED LIVER, SPLEEN, ADRENALS: Evaluation limited by lack of IV contrast. No identified sign ificant masses. PANCREAS: No masses. No peripancreatic inflammatory changes. GALLBLADDER: Peripheral calcifications again noted at the gallbladder wall (porcelain gallbladder). No definitive radiopaque stones. No pericholecystic inflammatory change. RIGHT KIDNEY AND URETER: There has been migration of the 7 mm stone (Hounsfield units 650) now at the level of the distal right ureter with associated significant upstream hydroureteronephrosis and priti atous renal parenchyma. No discrete solid mass although evaluation limited without intravenous contr ast. LEFT KIDNEY AND URETER: No suspicious masses. Assessment limited by lack of IV contrast. No signifi cant calcifications. No hydronephrosis or hydroureter. AORTA AND RETROPERITONEUM: No aneurysm. No retroperitoneal masses or adenopathy. BOWEL AND PERITONEAL CAVITY: No evidence intestinal obstruction. No focal bowel wall thickening. Mo derate formed stool throughout the colon. APPENDIX: Not well seen. PELVIS, BLADDER, AND ABDOMINAL WALL:Decompressed urinary bladder. No pelvic free fluid, adenopathy o r mass. BONES: No acute bony abnormality. No suspicious lytic or blastic osseous lesions. Sclerotic focus w ithin the least sacral ala, likely bone island. OTHER: No other significant finding. IMPRESSION: 1. 7 mm obstructing stone at the right distal ureter with significant associated upstre am hydronephrosis and edematous renal parenchyma. 2. Peripheral gallbladder wall calcifications, similar to prior. No other evidence of acute intra-a bdominal/pelvic process. COMMENT: Quality ID # 436: Final reports with documentation of one or more dose reduction techniques (e.g., Automated exposure control, adjustment of the mA and/or kV according to patient size, use of iterative reconstruction technique) TECHNICAL DOCUMENTATION: JOB ID: [id number] 2010 [employer]- All Rights Reserved Reading location - IP/workstation name: [email or web address]
[2020-04-19 08:59] LABS: URINE AMPHETAMINES SCREEN NEGATIVE; URINE BARBITURATES SCREEN NEGATIVE; URINE BENZODIAZEPINES SCREEN NEGATIVE; URINE COCAINE SCREEN NEGATIVE; URINE MARIJUANA (THC) SCREEN NEGATIVE; URINE METHADONE SCREEN NEGATIVE; URINE PHENCYCLIDINE SCREEN NEGATIVE
[2020-04-19] MEDS ORDERED: KETOROLAC TROMETHAMINE INJ/PF 30 MG/1 ML SDV IV ONE (09:06)
[2020-04-19 11:00] VITALS: BP 140/80
== END 2020-04-19 10:50 | disposition home or self-care (01) ==
LOC: ER 05:57
DX: N20.1 Calculus of ureter (principal); R10.9 Unspecified abdominal pain; R11.2 Nausea with vomiting, unspecified; Z87.442 Personal history of urinary calculi; Z88.2 Allergy status to sulfonamides; Z88.6 Allergy status to analgesic agent
CPT/HCPCS: 96376; 99285; 96361; 96374; 96375; 36415; 87086; 83690; 84703; 85025; 80053; 81001; 80307; 74176; J1885; J1170; J2405; J7030

== ENCOUNTER 2020-04-27 19:57 | Emergency (ER) | payer BC ==
--- NOTE | 2020-04-27 21:21 | ER Document Report ---
ED Medical Screen (RME) - General Chief Complaint: Low Back Pain Stated Complaint: RIGHT LOW BACK PAIN AND PELVIC PAIN Time Seen by Provider: 04/27/20 21:09 Primary Care Provider: DEL GUARDADO PA-C [Primary Care Provider] - Follow up as needed Mode of Arrival: Ambulatory Information source: Patient Notes: 44-year-old female presented to ED for complaint of severe right flank pain. She states now the pain is going down into her groin. She states she was seen here on had a CAT scan and has a 7 mm ureteral stone that is not moving. She states the pain is excruciating at times. She states she is on Flomax. She states she tried to call her urologist multiple times and has not gotten an answer since the . She states now she is having burning pain with urination as well as the pain to the flank and down the right leg. I have ordered blood in urine and the provider who sees her will need to decide if they want to give a CAT scan as well. I have greeted and performed a rapid initial assessment of this patient. A comprehensive ED assessment and evaluation of the patient, analysis of test results and completion of medical decision making process will be conducted by an additional ED providers. TRAVEL OUTSIDE OF THE [place] IN LAST 30 DAYS: No - Related Data Allergies/Adverse Reactions: morphine Allergy (Verified 04/19/20 06:10) Sulfa (Sulfonamide Antibiotics) Allergy (Verified 03/12/18 10:23) Past Medical History Endocrine Medical History: Denies: Hx Diabetes Mellitus Type 1, Hx Diabetes Mellitus Type 2 Renal/ Medical History: Reports: Hx Kidney Stones. Denies: Hx Peritoneal Dialysis Psychiatric Medical History: Reports: Hx Anxiety Traumatic Medical History: Reports: Hx Fractures Past Surgical History: Reports: Hx Section - x2, Hx Oral Surgery - Jaw surgery, Hx Orthopedic Surgery - right foot - Immunizations Immunizations up to date: Yes Physical Exam - Vital signs Vitals: Temp Pulse Resp BP Pulse Ox 98.4 F 111 H 20 139/96 H 100 04/27/20 21:19 04/27/20 21:19 04/27/20 21:19 04/27/20 21:19 04/27/20 21:19 Course - Vital Signs Vital signs: Temp Pulse Resp BP Pulse Ox 98.4 F 111 H 20 139/96 H 100 04/27/20 21:19 04/27/20 21:19 04/27/20 21:19 04/27/20 21:19 04/27/20 21:19 Doctor's Discharge - Discharge Referrals: DEL GUARDADO PA-C [Primary Care Provider] - Follow up as needed
[2020-04-27] MEDS ORDERED: HYDROCODONE/ACETAMINOPHEN 5-325 MG TABLET PO ONE (23:01)
--- NOTE | 2020-04-27 23:06 | ER Document Report ---
Doctor's Note Notes: 04/27/20 23:05 Patient presented to provider requesting pain medication. Labs and further testing is still pending. Patient denies any chance of . History of allergic reactions to morphine but states she is taken Vicodin in the past. Will order 1 dose of p.o. Vicodin while remaining tests are pending.
--- NOTE | 2020-04-27 23:55 | RADIOLOGY REPORT (SQ) ---
EXAM DESCRIPTION: US RETROPERITONEUM LIMITED COMPLETED DATE/TME: 04/27/2020 23:28 CLINICAL HISTORY: 44 years, Female, Right flank pain recent 7 mm stone right ureter COMPARISON: CT 04/19/2020 TECHNIQUE: Limited retroperitoneal ultrasound LIMITATIONS: None. FINDINGS: The right kidney measures 12 x 5 x 5 cm, the left 12 x 5 x 5 cm. No renal calculus or mass. [id number] right hydronephrosis, also present on prior CT. No perinephric fluid collection. Cortical medullary differentiation is preserved bilaterally. Urinary bladder is incompletely distended. IMPRESSION: [id number] right hydronephrosis, also present on prior CT copyright 2010 [employer]- All Rights Reserved
[2020-04-28 00:27] LABS: APPEARANCE,URINE CLEAR; BILIRUBIN,URINE NEGATIVE (NEGATIVE); COLOR,URINE YELLOW; GLUCOSE, URINE NEGATIVE (NEGATIVE); KETONES,URINE NEGATIVE (NEGATIVE); LEUKOCYTE ESTERASE,URINE MODERATE (NEGATIVE); NITRITE,URINE NEGATIVE (NEGATIVE); PROTEIN,URINE NEGATIVE (NEGATIVE); URINE SPECIFIC GRAVITY 1.025; UROBILINOGEN,URINE NEGATIVE mg/dL (<2.0)
[2020-04-28 01:27] LABS: ABSOLUTE EOSINOPHILS # (AUTO) 0.6 10^3/uL (0.0-0.6); ABSOLUTE LYMPHOCYTES (AUTO) 3.7 10^3/uL (0.5-4.7); ABSOLUTE MONOCYTES (AUTO) 0.6 10^3/uL (0.1-1.4); ABSOLUTE NEUT (AUTO) 5.5 10^3/uL (1.7-8.2); BASOPHILS % (AUTO) 0.3 % (0-2); EOSINOPHILS % (AUTO) 5.8 % (0-6); HEMATOCRIT 33.1 % (36.0-47.0); HEMOGLOBIN 10.9 g/dL (12.0-15.5); LYMPHOCYTES % (AUTO) 35.5 % (13-45); MEAN CORPUSCULAR HEMOGLOBIN 26.8 pg (27.0-33.4); MEAN CORPUSCULAR HGB CONC 32.9 g/dL (32.0-36.0); MEAN CORPUSCULAR VOLUME 82 fl (80-97); MONOCYTES % (AUTO) 5.8 % (3-13); PLATELET COUNT 404 10^3/uL (150-450); RED BLOOD COUNT 4.07 10^6/uL (3.72-5.28); RED CELL DISTRIBUTION WIDTH 15.1 % (11.5-14.0); SEGMENTED NEUTROPHILS % (AUTO) 52.6 % (42-78); TOTAL CELLS COUNTED % (AUTO) 100 %; WHITE BLOOD COUNT 10.4 10^3/uL (4.0-10.5)
[2020-04-28 01:42] LABS: ALKALINE PHOSPHATASE 57 U/L (38-126); ANION GAP 6 (5-19); ASPARTATE AMINO TRANSFERASE 18 U/L (14-36); BILIRUBIN,DIRECT 0.1 mg/dL (0.0-0.4); BILIRUBIN,TOTAL 0.2 mg/dL (0.2-1.3); BLOOD UREA NITROGEN 18 mg/dL (7-20); CALCIUM 9.2 mg/dL (8.4-10.2); CARBON DIOXIDE 26 mmol/L (22-30); CHLORIDE 105 mmol/L (98-107); GLUCOSE 117 mg/dL (75-110); POTASSIUM 4.7 mmol/L (3.6-5.0)
[2020-04-28] MEDS ORDERED: CEFTRIAXONE INJ 1000 MG VIAL IV ONE (02:19)
[2020-04-28] MEDS ORDERED: NORMAL SALINE 1000 ML 1,000 ML IV ONE (02:19)
[2020-04-28] MEDS ORDERED: KETOROLAC TROMETHAMINE INJ/PF 30 MG/1 ML SDV IV ONE (02:27)
[2020-04-28] MEDS ORDERED: HYDROMORPHONE HCL INJ/PF 2 MG/ML AMPULE IV ONE (02:28)
--- NOTE | 2020-04-28 02:30 | ER Document Report ---
ED GI/ - General Chief Complaint: Flank Pain Stated Complaint: RIGHT LOW BACK PAIN AND PELVIC PAIN Time Seen by Provider: 04/27/20 21:09 Primary Care Provider: [facility] [Provider Group] - 04/29/20 DEL GUARDADO PA-C [Primary Care Provider] - Follow up as needed Mode of Arrival: Ambulatory Notes: Patient is a 44-year-old female who presents emergency department with a chief complaint of right low flank/groin pain. Patient was diagnosed with a 7 mm ureteral stone on April 19. She has not followed up with urology in regards to this. She states that she is continuously on Flomax due to chronic kidney stones. Patient states that she does feel like she could possibly have a urinary tract infection, as every time she gets a kidney stone, she also develops a urinary tract infection. TRAVEL OUTSIDE OF THE [place] IN LAST 30 DAYS: No - Related Data Allergies/Adverse Reactions: morphine Allergy (Verified 04/19/20 06:10) Sulfa (Sulfonamide Antibiotics) Allergy (Verified 03/12/18 10:23) Past Medical History - General Information source: Patient - Social History Smoking Status: Never Smoker Frequency of alcohol use: Rare Family History: Reviewed & Not Pertinent Endocrine Medical History: Denies: Hx Diabetes Mellitus Type 1, Hx Diabetes Mellitus Type 2 Renal/ Medical History: Reports: Hx Kidney Stones. Denies: Hx Peritoneal Dialysis Psychiatric Medical History: Reports: Hx Anxiety Traumatic Medical History: Reports: Hx Fractures Past Surgical History: Reports: Hx Section - x2, Hx Oral Surgery - Jaw surgery, Hx Orthopedic Surgery - right foot - Immunizations Immunizations up to date: Yes Review of Systems - Review of Systems Notes: REVIEW OF SYSTEMS: CONSTITUTIONAL : Denies recent illness. Denies recent unintentional weight loss. Denies fever, chills, or sweats. EENT: Denies eye, ear, throat, or mouth pain, discharge, or symptoms. Denies nasal or sinus congestion. CARDIOVASCULAR: Denies chest pain. RESPIRATORY: Denies shortness of breath, cough, congestion, difficulty breathing, or wheezing. GASTROINTESTINAL: Denies nausea, vomiting, and diarrhea. Denies constipation. See HPI. GENITOURINARY: Denies difficulty urinating, burning, blood in urine, urgency or frequency. MUSCULOSKELETAL: See HPI. Denies joint pain or swelling. SKIN: Denies rash, itchiness, or lesions HEMATOLOGIC : Denies easy bruising or bleeding. LYMPHATIC: Denies swollen, painful, enlarged glands. NEUROLOGICAL: Denies no numbness or tingling denies weakness. Denies headache. Denies altered mental status. Denies alteration in speech. PSYCHIATRIC: Denies stress, anxiety, alteration in sleep patterns, or depression. All other systems reviewed and negative. Flex Physical Exam - Vital signs Vitals: Temp Pulse Resp BP Pulse Ox 98.4 F 111 H 20 139/96 H 100 04/27/20 21:19 04/27/20 21:19 04/27/20 21:19 04/27/20 21:19 04/27/20 21:19 - Notes Notes: PHYSICAL EXAMINATION: GENERAL: Appears well, healthy, well-nourished, no acute distress. HEAD: Normocephalic, atraumatic. EYES: PERRL, conjunctiva normal, all extraocular movements intact, sclera nonicteric ENT: Moist mucous membranes. NECK: Supple, no noticeable swelling, redness, rash. Normal range of motion. LUNGS: Equal breath sounds bilaterally and clear to auscultation. No wheezes rales or rhonchi. CARDIOVASCULAR: S1-S2, regular rate, regular rhythm. Radial pulses 2+, normal. ABDOMEN: Normoactive bowel sounds. Soft, nontender, no guarding, no rebound tenderness, and no masses palpated. EXTREMITIES: Normal strength and range of motion, no pitting or edema. No cyanosis. NEUROLOGICAL: Moves all extremities upon command. Strength 5/5 in all extremities. PSYCH: Normal mood, normal affect. SKIN: Warm, dry. No rash, lesions, ulcerations noted. Normal skin turgor. BACK: right CVA/low back tenderness. Course - Re-evaluation Re-evalutation: 04/28/20 02:30 Hematology does not show leukocytosis, but hemoglobin dropped a little, which is to be expected due to the patient having some hematuria. hCG is negative. Urinalysis shows a moderate amount of leukocytes in her urine. Urine was sent for culture. Kidney function is normal. Chemistries are also normal. We will place the patient on Rocephin, give IV fluids, pain medicine and will reassess. 04/28/20 04:59 Reports that she feels better after receiving Percocet. Dates that Bactrim has worked for her in the past. We will place her on Bactrim and urine has been sent for culture already. Patient is to follow-up with her urologist. No signs of sepsis noted. Follow-up precautions were given. Verbal discharge instructions were given to the patient. They verbalized understanding. They are stable for discharge. - Vital Signs Vital signs: Temp Pulse Resp BP Pulse Ox 98.3 F 95 16 129/86 H 99 04/28/20 05:14 04/28/20 05:14 04/28/20 05:14 04/28/20 05:14 04/28/20 05:14 - Laboratory Results Result Diagrams: 04/27/20 00:58 04/27/20 00:58 Laboratory Results Interpreted: 04/27/20 04/27/20 04/27/20 00:58 00:58 23:57 Hgb 10.9 L Hct 33.1 L MCH 26.8 L RDW 15.1 H Glucose 117 H Ur Leukocyte Esterase MODERATE H Critical Laboratory Results Reviewed: No Critical Results - Radiology Results Critical Radiology Results Reviewed: No Critical Results Discharge - Discharge Clinical Impression: Kidney stone Urinary tract infection Qualifiers: Urinary tract infection type: site unspecified Hematuria presence: with hematuria Qualified Code(s): N39.0 - Urinary tract infection, site not specified Condition: Stable Disposition: HOME, SELF-CARE Instructions: Trimethoprim-Sulfa ([facility]) Additional Instructions: You were seen today in the emergency department for flank pain. Continue Flomax as prescribed. Take the antibiotics as prescribed. Follow-up with urology in regards to this visit. Call them multiple times until you are able to get somebody to answer you. Prescriptions: Sulfamethoxazole/Trimethoprim [Bactrim Ds Tablet] 1 each PO BID 7 Days #14 tablet Oxycodone HCl/Acetaminophen [Percocet 5-325 mg Tablet] 1 - 2 tab PO Q4H PRN #25 tablet PRN Reason: Referrals: DEL GUARDADO PA-C [Primary Care Provider] - Follow [facility] as needed [facility] - 04/29/20
[2020-04-28] MEDS ORDERED: OXYCODONE-ACETAMINOPHEN 5-325 MG TABLET PO ONE (03:33)
[2020-04-28 05:16] VITALS: BP 129/86
== END 2020-04-28 05:15 | disposition home or self-care (01) ==
LOC: ER 19:57
DX: N39.0 Urinary tract infection, site not specified (principal); N20.0 Calculus of kidney; R10.9 Unspecified abdominal pain; M54.5 Low back pain; R10.2 Pelvic and perineal pain; Z88.2 Allergy status to sulfonamides; Z88.8 Allergy status to other drugs, medicaments and biological substances
CPT/HCPCS: 99285; 96361; 96375; 96365; 36415; 87086; 84703; 85025; 87088; 80053; 81001; 76775; J1885; J1170; J0696; J7030